=== PATIENT | female | born 1980 | race African-American/Black ===

== ENCOUNTER 2020-06-06 10:59 | Emergency (ER) | payer MEDICARE ==
[~2020-06-06] VITALS: Ht 163.8 cm; Wt 115.4 kg
[~2020-06-06 10:59] MED LIST: AMOXICILLIN500 MG OR; AMOXICILLIN500 MG PO; ANTI-FUNGAL12 TOP; FIORICET PO; FLEXERIL PO; LOESTRIN F1 PO; LORTAB 5 OR; NAPROSYN500 MG PO; NO HOME MEDS; OMEPRAZOLE40 MG PO; PHENERGAN12.5 MG/TA PO; PHENERGAN25 MG/ML IM; RESTASIS0.05 % OP; RYBIX ODT50 MG PO; TORADOL IM; TYLENOL COL OR; ULTRAM50 M1 PO; VOLTAREN1%GEL TOP; VOLTAREN3% GEL TOP; ZITHROMAX250 MG PO; ZOFRAN ODT4 MG OR; ZOFRAN ODT4 MG PO; ZOFRAN ODT8 MG PO
[2020-06-06] MEDS ORDERED: BACLOFEN10 MG PO (11:16)
[2020-06-06 11:40] LABS: HEMATOCRIT 39.3 % (37.0-47.0); HEMOGLOBIN 11.8 g/dl (12.0-16.0); IMMATURE GRANULOCYTES 0.6 % (0.0-5.0); MEAN CORPUSCULAR HGB 22.4 pG CALC (26.0-32.0); NEUT# 3.36 thou/uL (2.00-7.15); RED BLOOD COUNT 5.27 mill/uL (4.20-5.60); RED CELL DISTRI WIDTH 16.6 % (11.5-15.5)
[2020-06-06 11:42] LABS: MEAN CELL VOLUME 74.6 fL CALC (80.0-100.0)
[2020-06-06 11:50] LABS: ALBUMIN 4.7 g/dL (3.2-5.0); ALKALINE PHOSPHATASE 105 u/l (38-126); ANION GAP 18 (6-22 (CALC)); BILIRUBIN, TOTAL 0.5 mg/dL (0.0-1.4); BUN 8 mg/dL (7-17); BUN/CREATININE RATIO 17 (12-20 (CALC)); CARBON DIOXIDE 23 mmol/l (22-30); CHLORIDE 100 mmol/l (95-108); CREATININE 0.5 mg/dL (0.5-1.0); GFR > 60 ML/MIN (>=60 (CALC)); GFR FOR AFR.AMER. > 60 ML/MIN (>=60 (CALC)); LIPASE 66 u/l (23-300); POTASSIUM 3.9 mmol/l (3.5-5.1); SGOT/AST 35 u/l (14-36); SODIUM 136 mmol/l (137-146); TOTAL PROTEIN 8.7 g/dL (6.3-8.2)
[2020-06-06 12:26] LABS: URINE BLOOD DIPSTICK NEGATIVE (NEGATIVE); URINE GLUCOSE - DIPSTICK NEGATIVE (NEGATIVE); URINE KETONE >=80 mg/dL (NEGATIVE); URINE LEUK ESTERASE NEGATIVE (NEGATIVE); URINE NITRITE - DIPSTICK NEGATIVE (Negative); URINE PROTEIN - DIPSTICK 100 mg/dL (NEG-TRACE); URINE SPECIFIC GRAVITY >=1.030
[2020-06-06 12:28] LABS: URINE BILIRUBIN - DIPSTICK MODERATE (NEGATIVE)
[2020-06-06 12:29] LABS: URINE COLOR DK. YELLOW; URINE EPITHELIAL CELLS MANY EPI/hpf (0-FEW); URINE MUCUS MODERATE hpf (NONE-FEW)
[2020-06-06] MEDS ORDERED: ZOFRAN4 MG/TAB PO (12:55)
[2020-06-06 13:10] VITALS: BP 131/80
== END 2020-06-06 13:18 | disposition home or self-care (01) ==
LOC: ED 10:59
PROVIDERS: Family Medicine
DX: U07.1 COVID-19 (principal); R11.2 Nausea with vomiting, unspecified

== ENCOUNTER 2021-03-16 07:21 | Observation (INO) | payer MEDICARE ==
[~2021-03-16] VITALS: Ht 165.1 cm; Wt 108.0 kg
[~2021-03-16 07:21] MED LIST changes: +BACLOFEN10 MG PO; +ZOFRAN4 MG/TAB PO
--- NOTE | 2021-03-16 07:23 | NUR ---
PATIENT TO ROOM VIA WHEELCHAIR AND PHYSICIAN NOTIFIED OF PATIENT STATUS
[2021-03-16] MEDS ORDERED: LEVOTHYROXIN50 MCG PO (07:36)
[2021-03-16 07:56] LABS: HEMOGLOBIN 10.1 g/dl (12.0-16.0); IMMATURE GRANULOCYTES 0.5 % (0.0-5.0); MEAN CORPUSCULAR HGB 25.7 pG CALC (26.0-32.0); MEAN CORPUSCULAR HGB CONC 30.9 g/dL CAL (32.0-36.0); NEUT# 8.1 thou/uL (2.00-7.15); RED BLOOD COUNT 3.93 mill/uL (4.20-5.60); RED CELL DISTRI WIDTH 16.9 % (11.5-15.5)
[2021-03-16 07:57] LABS: HEMATOCRIT 32.7 % (37.0-47.0); MEAN CELL VOLUME 83.2 fL CALC (80.0-100.0)
--- NOTE | 2021-03-16 08:05 | NUR ---
IV ACCESS OBTAINED AND IVF INFUSING LAB TO RECOLLECT RELATED TO HEMOLIZATION OF FIRST SPECIMENS.
[2021-03-16 08:28] LABS: URINE BILIRUBIN - DIPSTICK NEGATIVE (NEGATIVE); URINE BLOOD DIPSTICK LARGE (NEGATIVE); URINE COLOR YELLOW; URINE GLUCOSE - DIPSTICK NEGATIVE (NEGATIVE); URINE KETONE 40 mg/dL (NEGATIVE); URINE LEUK ESTERASE SMALL (NEGATIVE); URINE NITRITE - DIPSTICK POSITIVE (Negative); URINE PROTEIN - DIPSTICK 30 mg/dL (NEG-TRACE); URINE SPECIFIC GRAVITY 1.015
[2021-03-16 08:33] LABS: ALBUMIN 3.9 g/dL (3.2-5.0); ALKALINE PHOSPHATASE 89 u/l (38-126); ANION GAP 12 (6-22 (CALC)); BILIRUBIN, TOTAL 0.6 mg/dL (0.0-1.4); BUN 8 mg/dL (7-17); BUN/CREATININE RATIO 15 (12-20 (CALC)); CARBON DIOXIDE 26 mmol/l (22-30); CHLORIDE 96 mmol/l (95-108); CREATININE 0.5 mg/dL (0.5-1.0); GFR > 60 ML/MIN (>=60 (CALC)); GFR FOR AFR.AMER. > 60 ML/MIN (>=60 (CALC)); LIPASE 36 u/l (23-300); SGOT/AST 28 u/l (14-36); SODIUM 131 mmol/l (137-146)
[2021-03-16 08:34] LABS: URINE RBC 25-50 RBC/hpf (0-5); URINE WBC 50-100 WBC/hpf (0-5)
[2021-03-16 08:35] LABS: POTASSIUM 2.9 mmol/l (3.5-5.1)
[2021-03-16 08:35] LABS: URINE BACTERIA MANY hpf; URINE SQUAMOUS EPITHELIAL CELL FEW EPI/hpf (0-FEW)
--- NOTE | 2021-03-16 08:50 | NUR ---
PT AWARE OF PLANNED ADMISSION, SPOUSE REMAINS AT BEDSIDE, CALL ESCOBAR WITHIN REACH.
--- NOTE | 2021-03-16 08:55 | NUR ---
RECEIVED REPORT FROM DOROTHY GONZALES.
--- NOTE | 2021-03-16 10:01 | NUR ---
RESTING QUIETLY, DENIES NEEDS AT THIS TIME
--- NOTE | 2021-03-16 10:36 | NUR ---
MD AT BEDSIDE TO DISCUSS RESULTS AND POC.
--- NOTE | 2021-03-16 10:50 | NUR ---
COVID SWAB COLLECTED, ISOLATION PRECAUTIONS INITIATED.
--- NOTE | 2021-03-16 11:29 | NUR ---
REPORT CALLED TO TAVARES GONZALES.
--- NOTE | 2021-03-16 11:50 | NUR ---
TO ICU VIA STRETCHER.
[2021-03-16 13:00] VITALS: BP 150/57
--- NOTE | 2021-03-16 13:00 | NUR ---
PT ARRIVES FROM ER ACCOMPANIED BY ALEXEI GONZALES. PT IS ALERT AND ORIENTED X 3. LUNGS CLEAR, RA. PT WITH LEFT KNEE PAIN, USES CRUTCHES FOR ASSIST. PT WITH SOME NAUSEA UPON ARRIVAL, PROVIDED ZOFRAN FOR SAME. IVF RUNNING WELL POTASSIUM RIDERS. NO DISTRESS NOTED, NO COMPLAINTS.
[2021-03-16 15:00] VITALS: BP 110/55
--- NOTE | 2021-03-16 17:24 | NUR ---
PT MEDICATED FOR LEFT FLANK AND KNEE PAIN, SEEN AT REST IN THE BED IN NO ACUTE DISTRESS.
[2021-03-16 18:00] VITALS: BP 111/64
--- NOTE | 2021-03-16 19:30 | NUR ---
REPORT GIVEN BY DAD. PATIENT LAYING IN BED. RESP EVEN AND UNLABORED. NO S/S OF DISTRESS NOTED. FALL AND SAFTEY PRECAUTIONS IN PLACE. NO S/S OF DISTRESS NOTED. IV INFUSING FLUIDS. PATIENT REQUESTING TYLENOL FOR LEFT FLANK PAIN. . PLAN OF CARE DISCUSSED. PATIENT INFORMED TO CALL WITH ANY QUESTIONS OR CONCERNS.
[2021-03-16 20:00] VITALS: BP 136/61
[2021-03-16 22:00] VITALS: BP 122/60
--- NOTE | 2021-03-16 22:00 | NUR ---
patient resting in bed with eyes closed. resp even and unlabored. no s/s of distress noted. fall and saftey precautions in place.
[2021-03-17] VITALS (8 sets, daily range): BP systolic 130–157; BP diastolic 59–90
--- NOTE | 2021-03-17 00:02 | NUR ---
PATIENT RESTING WITH EYES CLOSED. RESP EVEN AND UNLABORED. NO S/S OF DISTRESS NOTED
--- NOTE | 2021-03-17 02:32 | NUR ---
PATIENT RESTING WITH EYES CLOSED. FALL AND SAFTEY PRECAUTIONS IN PLACE. NO S/S OF DISTRESS NOTED.
[2021-03-17 04:43] LABS: HEMATOCRIT 29.4 % (37.0-47.0); HEMOGLOBIN 9.1 g/dl (12.0-16.0); MEAN CELL VOLUME 81.9 fL CALC (80.0-100.0); MEAN CORPUSCULAR HGB 25.3 pG CALC (26.0-32.0); RED BLOOD COUNT 3.59 mill/uL (4.20-5.60); RED CELL DISTRI WIDTH 16.3 % (11.5-15.5)
[2021-03-17 04:52] LABS: ANION GAP 9 (6-22 (CALC)); BUN 5 mg/dL (7-17); BUN/CREATININE RATIO 10 (12-20 (CALC)); CARBON DIOXIDE 26 mmol/l (22-30); CHLORIDE 101 mmol/l (95-108); CREATININE 0.5 mg/dL (0.5-1.0); GFR > 60 ML/MIN (>=60 (CALC)); GFR FOR AFR.AMER. > 60 ML/MIN (>=60 (CALC)); MAGNESIUM 2.2 mg/dL (1.6-2.3); POTASSIUM 3.3 mmol/l (3.5-5.1); SODIUM 133 mmol/l (137-146)
--- NOTE | 2021-03-17 04:54 | NUR ---
PATIENT RESTING WITH EYES CLOSED. RESP EVEN AND UNLABORED. NO S/S OF DISTRESS NOTED. FALL AND SAFTEY PRECAUTIONS IN PLACE.
--- NOTE | 2021-03-17 07:19 | NUR ---
PT REPORT RECEIVED FROM LINING STAMPER, PT WANTS TO GET UP TO USE BEDSIDE COMMODE. PT STATES IS ON HER MENSTRAL PERIOD BEGINNING A COUPLE OF DAYS AGO. STATES PAIN REMAINS ON LEFT SIDE BUT IS NOT BAD WHEN SHE WAS ADMITTED. STATES SHE WANTS TO CLEAN UP WHILE SHE IS UP USING COMMODE.
--- NOTE | 2021-03-17 07:20 | NUR ---
PT STATES NAUSEATED AND A 5 ON LEFT SIDED PAIN
--- NOTE | 2021-03-17 11:18 | NUR ---
PT STATES FEELS A LITTLE BETTER AT THIS TIME. ADVISED OF UPDATE OF PLAN OF CARE PER . PT RESTING IN BED WATCHING TV AT THIS TIME.
--- NOTE | 2021-03-17 13:08 | NUR ---
REPORT RECEIVED FROM JANET RILEY
--- NOTE | 2021-03-17 14:31 | NUR ---
PT ARRIVED TO MED/SURG ROOM 273 IN STABLE CONDITION VIA WHEELCHAIR ACCOMPANIED BY JANET MARTINI;PT ASSISTED TO BEDSIDE;WT AND VS OBTAINED BY GRAEME PALACIOS;PT A&O X3, ORIENTED TO ROOM AND CALL LIGHT SYSTEM;PT DENIES ANY CURRENT PAIN OR DISCOMFORTS,PAIN SCALE AND REPORTING EDUCATED;RESPIRATIONS EVEN AND UNLABORED ON RA,CLEAR LUNG SOUNDS;ABDOMEN DISTENDED/SOFT ON PALPATION AND ACTIVE IN ALL 4 QUADRANTS;STRONG PEDAL PULSES;SKIN INTACT;#20G TO RAC INFUSING NS @ 100ML/HR,SITE APPEARS HEALTHY;FRESH WATER PROVIDED PER REQUEST;PT DENIES ANY ADDITIONAL NEEDS;ENCOURAGED TO CALL FOR ASSISTANCE IF NEEDED;CALL LIGHT IN REACH;WILL CONTINUE TO MONITOR
--- NOTE | 2021-03-17 14:46 | NUR ---
PT TAKEN TO ROOM 273 PER W/C WITH FLUIDS. PT ALERT/ORIENTED X3, LUNGS CLEAR, DENIES ANY NAUSEA OR VOMITING AT THIS TIME. TALKING ON PHONE. WATCHING HALLMARK AND LAUGHING WITH THIS MATTRESS FILLING MACHINE TENDER. FLUIDS INFUSING IN IV LOCATED IN [facility], SITE APPEARS TO BE HEALTHY. NO COMPLAINTS FROM PT AT THIS TIME.
--- NOTE | 2021-03-17 14:46 | NUR ---
PT TRANSFERRED TO MED SURG PER W/C
--- NOTE | 2021-03-17 15:47 | NUR ---
VISITOR AT BEDSIDE
--- NOTE | 2021-03-17 15:57 | NUR ---
PTS FAMILY MEMEMBER CAME IN TO SEE PT, PT SITTING UP IN BED, SMILING AND TALKING WITH FAMILY, NO SIGNS OF PAIN AND NO COMPLAINTS AT THIS TIME.
--- NOTE | 2021-03-17 16:00 | NUR ---
PT MEDICATED WITHY SCHEDULED MIRLAX TO ASSIST IN BOWEL CARE AND PRN TYLENOL 650MG PO PER REQUEST FOR LEFT FLANK PAIN RATING 7/10 ON THE PAIN SCALE,WILL CONTINUE TO MONITOR FOR EFFECTIVENESS
--- NOTE | 2021-03-17 20:24 | NUR ---
PATIENT IS ALERT AND ORIENTED X3. ABLE TO MAKE NEEDS KNOWN. RESPIRATIONS EASY ON ROOM AIR. NO TELEMETRY. HEART RATE REGULAR. C/O LEFT FLANK PAIN OF 5/10. NO PAIN MEDICATION REQUESTED. VAD RAC PATENT AND INFUSING NORMAL SALINE AT 100 ML/HR. BOWEL SOUNDS HYPOACTIVE. STILL NO BOWEL MOVEMENT. REPORTED BY DAY NURSE THAT PATIENT RECEIVED MIRALAX EARLIER TODAY. STILL WAITING FOR RESULTS. BED IN LOW POSITION. CALL LIGHT WITHIN REACH. FALL PRECAUTIONS MAINTAINED.
[2021-03-18 04:00] VITALS: BP 125/71
[2021-03-18 05:10] LABS: HEMATOCRIT 29.7 % (37.0-47.0); HEMOGLOBIN 9.1 g/dl (12.0-16.0); IMMATURE GRANULOCYTES 0.5 % (0.0-5.0); MEAN CELL VOLUME 82.3 fL CALC (80.0-100.0); MEAN CORPUSCULAR HGB 25.2 pG CALC (26.0-32.0); MEAN CORPUSCULAR HGB CONC 30.6 g/dL CAL (32.0-36.0); NEUT# 2.79 thou/uL (2.00-7.15); RED BLOOD COUNT 3.61 mill/uL (4.20-5.60); RED CELL DISTRI WIDTH 16.5 % (11.5-15.5)
[2021-03-18 05:40] LABS: ANION GAP 11 (6-22 (CALC)); BUN 4 mg/dL (7-17); BUN/CREATININE RATIO 8 (12-20 (CALC)); CARBON DIOXIDE 26 mmol/l (22-30); CHLORIDE 103 mmol/l (95-108); CREATININE 0.5 mg/dL (0.5-1.0); GFR > 60 ML/MIN (>=60 (CALC)); GFR FOR AFR.AMER. > 60 ML/MIN (>=60 (CALC)); POTASSIUM 3.8 mmol/l (3.5-5.1); SODIUM 137 mmol/l (137-146)
--- NOTE | 2021-03-18 06:55 | NUR ---
REPORT RECEIVED FROM ASHLIRN
[2021-03-18 08:12] VITALS: BP 140/86
--- NOTE | 2021-03-18 08:15 | NUR ---
PT RESTING IN SEMI FOWLERS POSITON,A&O X3;VS OBTAINED AND ASSESSMENT COMPLETED;PT REPORT LEFT FLANK PAIN RATING 5/10 ON THE PAIN SCALE AND REQUESTS PRN PAIN MEDICATION,PT MEDICATED WITH PRN TYLENOL 650MG PO;RESPIRATIONS EVEN AND UNLABORED ON RA,CLEAR LUNG SOUNDS;ABDOMEN SOFT ON PALPATION AND ACTIVE IN ALL 4 QUADRANTS;STRONG PEDAL PULSES;SKIN INTACT;#20G TO RAC INFUSING NS @ 100ML/HR,SITE APPEARS HEALTHY;PT DENIES ANY ADDITIONAL NEEDS AND IS ENCOURAGED TO CALL FOR ASSISTANCE IF NEEDED;FALL PRECAUTIONS IN PLACE WITH BED IN THE LOWEST POSITION AND CALL LIGHT IN REACH;WILL CONTINUE TO MONITOR
[2021-03-18] MEDS ORDERED: ZPAK PO (09:19)
--- NOTE | 2021-03-18 09:43 | NUR ---
AND OWEN ANRP AT BEDSIDE DISCUSSING POC.
[2021-03-18] MEDS ORDERED: PANTOPRAZOLE SO40 M1 PO (10:29)
--- NOTE | 2021-03-18 11:00 | NUR ---
PT RESTING IN SEMI FOWLERS POSITION;RESPIRATIONS EVEN AND UNLABORED ON RA;PT DENIES ANY CURRENT PAIN OR DISCOMFORTS;IV SITE PATENT AND ABX STARTED AT THIS TIME PER ORDER;PT EDUCATED ON PLANS TO D/C HOME AND VERBALIZES UNDERSTANDING;D/C INSTRUCTIONS PROVIDED AT THIS TIME INCLUDING RX FOR ZPAK, PT DENIES ANY ADDITIONAL QUESTIONS OR NEEDS;WHEELCHAIR TO BE PROVIDED FOR D/C HOME ONCE ABX HAS COMPLETED;SPOUSE TO TRANSPORT PT HOME;WILL CONTINUE TO MONITOR
--- NOTE | 2021-03-18 11:40 | NUR ---
IV SITE REMOVED WITH CATHETER INTACT;WHEELCHAIR TO BE PROVIDED FOR D/C HOME;SPOUSE TO TRANSPORT PT HOME;WILL CONTINUE TO MONITOR
--- NOTE | 2021-03-18 12:17 | NUR ---
Discharge instructions given. Patient verbalizes understanding of same. Discharged in stable condition via Wheelchair to Home with family. All belongings sent with pt. PT TRANSPORTED TO [facility] IN STABLE CONDITION VIA WHEELCHAIR ACCOMPANIED BY WRITTER.ALL BELONGINGS LEFT WITH PT AT THIS TIME;SPOUSE TO TRANSPORT PT HOME.
== END 2021-03-18 12:17 | disposition home or self-care (01) ==
LOC: ED 07:21 → ED-I 08:02 → ED 08:02 → ED-I 10:27 → ED 10:41 → ICU 10:42 → MS2 03-17 14:31
PROVIDERS: Family Medicine; Nurse Practitioner; ADMIT Internal Medicine; ATTEND Internal Medicine
DX: K29.70 Gastritis, unspecified, without bleeding (principal); E87.6 Hypokalemia; E86.0 Dehydration; E87.1 Hypo-osmolality and hyponatremia; D64.9 Anemia, unspecified; E03.9 Hypothyroidism, unspecified; E66.01 Morbid (severe) obesity due to excess calories; M54.5 Low back pain; G89.29 Other chronic pain; R82.71 Bacteriuria; R93.5 Abnormal findings on diagnostic imaging of other abdominal regions, including retroperitoneum; Z20.822 Contact with and (suspected) exposure to COVID-19
CPT/HCPCS: G0378; J1650; J3475; Q9967; S0164